=== PATIENT | female | born 1975 | race Two or more races ===

== ENCOUNTER 2020-09-24 21:23 | Emergency (ER) | payer OTHER ==
[~2020-09-24] VITALS: Ht 154.9 cm; Wt 83.9 kg
[2020-09-24] MEDS ORDERED: VASOTEC20 M1 PO (21:36)
[2020-09-25] MEDS ORDERED: KETO10TA2 PO (02:08)
== END 2020-09-25 02:16 | disposition home or self-care (01) ==
LOC: ER 21:23
DX: N21.8 Other lower urinary tract calculus (principal); R10.32 Left lower quadrant pain